=== PATIENT | female | born 2000 | race Native Hawaiian/Other Pacific Islander ===

== ENCOUNTER 2022-04-29 22:54 | Outpatient (CLI) | payer BC, SELFPAY ==
--- OUTSIDE RECORDS SUMMARY | 2022-05-08 12:32 | XMS_ITS | Clinical Summary ---
:2000 Author Organization [facility] [place] [address] Care Team Providers Name Role Phone Pcp, [...] Assigned at Date Recorded Not on file Obstetrics History Last Filed Vital Signs Vital [...] and wt on same day) 09/15/2022 09/15/2021, 08/05/19, for age 18+ 02/11/2021, Additional history exists [...] 04/04/[address] [facility] 3:14 PM CDT [facility] Specimen Anatomical Collection Method Collection Time Receive d Time (Source) Location / / Volume Laterality Throat SPECIMEN FROM Non-Blood / 04/04/2022 2:59 PM 04/04/20 2:59 THROAT / Unknown Unknown CDT PM CDT Mila Evangelista NP MICROBIOLOGY Performing Organization Address City/State/ZIP Code Phon e Number [facility] [address] [place] [address] from Last 3 Months Insurance Payer Benefit Plan / Subscriber ID Effective Dates Phone Addre ss Type Group [employer] [id number] 2019-Present [address] [address] [place] [address] [address]) [place] [address] Mike James Motor Vehicle Self [address] ([place]) [place] [address] Care Teams 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
== END 2022-04-29 22:55 | disposition home or self-care (01) ==
LOC: AMB 05-08 12:17
PROVIDERS: PCP Family Medicine; Visit Provider Family Medicine
DX: R06.09 Other forms of dyspnea (principal); R11.10 Vomiting, unspecified
CPT/HCPCS: A0425; A0427

== ENCOUNTER 2022-04-29 23:17 | Emergency (ER) | payer BC, SELFPAY ==
[2022-04-29 23:29] VITALS: BP 145/90; PULSE 130; RESP 24; TEMP 38.3; O2SAT 96; BMI 31.4
[2022-04-30 00:03] LABS: PCR FLU A POSITIVE PCR FLU A (Negative); PCR FLU B Negative PCR FLU B (Negative); PCR RSV Negative PCR RSV (Negative)
[2022-04-30 00:06] LABS: SARS PCR* Negative SARS-CoV-2 (Negative)
--- OUTSIDE RECORDS SUMMARY | 2022-04-30 00:25 | XMS_ITS | Clinical Summary ---
:2000 Author Organization [facility] [place] [address] Care Team Providers Name Role Phone Pcp, No Primary Care Provider Unavailable Allergies No known active allergies Medications Medication Sig Dispensed Refills Start Date End Date Status benzonatate Take 1-2 30 Capsule 0 03/20/2021 Active (TESSALON) 100 mg Capsules capsuleIndications: (100-200 mg) by Cough mouth 3 times daily if needed for Cough. albuterol HFA Inhale 2 Puffs 1 Each 0 03/20/2021 Active (PRO-AIR; VENTOLIN; by mouth every PROVENTIL) 90 4 hours if mcg/actuation needed (cough inhalerIndications: or wheezing). Wheezing ondansetron (ZOFRAN) Take 1 Tablet 30 Tablet 0 04/30/2021 Active 4 mg (4 mg) by mouth tabletIndications: every 8 hours Nausea and vomiting, if needed for intractability of Nausea/Vomiting vomiting not . specified, unspecified vomiting type loratadine (CLARITIN) Take 1 Tablet 0 08/04/2021 Active 10 mg tablet (10 mg) by mouth once daily. budesonide-formoteroL Inhale 2 Puffs 10.2 g 11 09/15/2021 Active (Symbicort) 80-4.5 by mouth 2 mcg/actuation (80-4.5 times daily. mcg each actuation) inhalerIndications: Wheeze mometasone-formoterol Inhale 2 Puffs 13 g 5 09/17/2021 Active (Dulera) 100-5 by mouth 2 mcg/actuation times daily. inhalerIndications: Moderate persistent intrinsic asthma without status asthmaticus without complication benzonatate Take 1 Capsule 21 Capsule 0 04/04/2022 A ctive (TESSALON) 200 mg (200 mg) by capsuleIndications: mouth 3 times Cough, unspecified daily if needed type for Cough. cefdinir (OMNICEF) Take 6 mL (300 84 mL 0 04/04/202204/11 250 mg/5 mL mg) by mouth suspensionIndications two times daily : Upper respiratory for 7 days. tract infection, unspecified type, Cough, unspecified type Active Problems Problem Noted Date Vitamin D deficiency 09/18/2017 Teeth-grinding 10/15/2009 Resolved Problems Problem Noted Date Resolved Date Severe episode of recurrent major depressive disorder, 10/1312/02/2020 without psychotic features Encounters Date Type Specialty Care Team Description 04/04/2022 Office Visit Mila Evangelista NP Cough; T hroat Problem; Fever; Vomiting; Influ yohana Like Illness 04/04/2022 Travel from Last 3 Months Immunizations Name Administration Dates Next Due COVID-19 vaccine (Moderna 08/18/2020, 07/21/2020 100mcg/0.5mL) PF, MDV DTaP 09/10/2005, 11/03/2001, 04/04/2001, 01/07/2001, 2000 HIB-HepB (Comvax) 11/03/2001, 01/07/2001, 2000 HPV 9 (Gardasil 9) 12/22/2017, 10/18/2017, 04/01/2016 Hepatitis A (Peds) 12/22/2017, 09/12/2010, 10/15/2009 Hepatitis B (Peds) 11/03/2001, 01/07/2001, 2000 Hib Conjugate, Unspecified 11/03/2001, 01/07/2001, 1 Human Papilloma Virus Vaccine 11/21/2014 Human Papilloma Virus Vaccine, 01/12/2013 Unspecified Inactivated Polio Vaccine 09/10/2005, 04/04/2001, 01/07/2001 , 2000 Influenza A (H1N1), Inactivated 05/17/2009, 04/19/2009 Influenza A (H1N1), Inactivated (Age 1205/17/2009, 04/19/2009 >=3 Years) Influenza, IIV4 02/28/2020, 04/17/2019, 04/01/2016 MMR 09/10/2005, 09/02/2001 Meningococcal Vaccine (Menactra) 01/22/2012 Pneumococcal Poly,23-Valent 01/07/2001 (Pneumovax) Pneumococcal conj 7-Valent (Prevnar 7) 02/10/2002, 1, 01/07/2001, 2000 Tdap 10/18/2017, 01/22/2012 Varicella Vaccine 10/15/2009, 09/02/2001 Family History Medical History Relation Name Comments Diabetes Father No Known Problems Mother Diabetes Paternal Grandfather Diabetes Paternal Grandmother Relation Name Status Comments Father Mother Paternal Grandfather Paternal Grandmother Social History Tobacco Use Types Packs/Day Years Used Date Never Smoker Smokeless Tobacco: Never Used Tobacco Cessation: Counseling Given: Yes Alcohol Use Standard Drinks/Week Comments Never 0 (1 standard drink = 0.6 oz pure alcoho l) Alcohol Habits Answer Date Recorded How often do you have a drink containing alcohol? Never 12/02/2020 How many drinks containing alcohol do you have on a typical Not asked day when you are drinking? How often do you have six or more drinks on one occasion? No t asked Comment: Not asked Sex Assigned at Date Recorded Not on file COVID-19 Exposure Response Date Recorded In the last 10 days, have you been in contact with No / Unsu re 04/04/2022 1:27 PM CDT someone who was confirmed or suspected to have Coronavirus/COVID-19? Obstetrics History Last Filed Vital Signs Vital Sign Reading Time Taken Comments Blood Pressure 118/81 09/15/2021 9:25 AM CDT Pulse 84 04/04/2022 1:37 PM CDT Temperature 37 ??C (98.6 ??F) 04/04/2022 1:37 PM CDT Respiratory Rate 18 04/04/2022 1:37 PM CDT Oxygen Saturation 97% 04/04/2022 1:37 PM CDT Inhaled Oxygen Concentration - - Weight 65.8 kg (145 lb) 04/04/2022 1:37 PM CDT Height 144 cm (4' 8.69) 09/15/2021 9:25 AM CDT Body Mass Index 31.72 09/15/2021 9:25 AM CDT Plan of Treatment Health Maintenance Due Date Last Done Comments Pneumococcal series for age 0308/26/2006 01/07/2001 19-64 (1 - PCV) Hepatitis C screening for 2018 age 18-79 COVID-19 vaccine series (4 - 07/15/2021 05/20/2021, 021, Booster for Moderna series) 07/21/2020 Pap test for age 21-65 2021 Depression screening for age 0712/03/2021 12/03/2020, 021, 12+ 05/02/2019, Additional history exists Influenza for age 9-49 01/29/2022 02/28/2020, 04/17/2019, 04/01/2016, Additional history exists BMI (ht and wt on same day) 09/15/2022 09/15/2021, 08/05/19 22, for age 18+ 02/11/2021, Additional history exists Tetanus booster 10/19/2027 10/18/2017, 01/22/2012 Meningococcal series for age Aged Out 01/22/2012 No longer eligible 04-20 based on patient 's age to complete this topic Tdap Completed 10/18/2017, 01/22/2012 HPV series for age 9-26 Completed 12/22/2017, 12/22/2017, 10/18/2017, Additional history exists HIV for age 15-65 Completed 12/02/2020 Procedures Procedure Name Priority Date/Time Associated Diagnosis Comme nts THROAT RAPID STREP STAT 04/04/2022 2:59 PM Sore throat Res ults for this ONLY CLINIC CDT procedure are i n the results section. from Last 3 Months Results THROAT RAPID STREP ONLY CLINIC (04/04/2022 2:59 PM CDT) Analysis Performed At Patho logist Time Signature THROAT RAPID Negative 04/04/2022 [facility] 3:14 PM [facility]T [facility] Specimen Anatomical Collection Method Collection Time Receive d Time (Source) Location / / Volume Laterality Throat SPECIMEN FROM Non-Blood / 04/04/2022 2:59 PM 04/04/20 22 2:59 THROAT / Unknown Unknown CDT PM CDT Mila Evangelista NP MICROBIOLOGY Performing Organization Address City/State/ZIP Code Phon e Number [facility] [address] [place], [place] [id number] from Last 3 Months Insurance Payer Benefit Plan / Subscriber ID Effective Dates Phone Addre ss Type Group [employer] [place] [employer] [id number] 2019-Present [address] [address] [place] [address] [address]Home) [place] [address] Mike James Motor Vehicle Self [address]) [place] [address] Care Teams 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
--- NOTE | 2022-04-30 00:29 | ED.GENADULT ---
HPI - General Adult General Chief complaint: Fever Stated complaint: fever, short of breath Time Seen by Provider: 04/29/22 23:53 Source: patient, family and EMS Mode of arrival: EMS Limitations: no limitations History of Present Illness HPI narrative: 21-year-old female with known history of asthma presents to the emergency department with body aches, fever, shortness of breath. She reports that her symptoms started a day and a half ago, initially with body aches, fever and then quickly starting to develop chest tightness and shortness of breath. Reports that she has been evaluated by an fleet operations manager, after thinking that her breathing symptoms may have been set off by the pet cats that she adopted over a year ago. It sounds as though she was not found to be necessarily allergic to the cat per her description but was diagnosed with asthma and has been prescribed Symbicort. It does not sound as though she understands the difference between the Symbicort and a rescue inhaler. She states that she has been using the Symbicort as prescribed on specific questioning, she is using it less than half of the days, as she has been running low. She does not have access to an albuterol inhaler. Tonight, she felt chest tightness and difficulty breathing. She did vomit x1. Her last dose of ibuprofen was around 6:30 p.m., 5 hours prior to arrival. This did help with her fever somewhat. Her appetite has been decreased for the past 2 days. No known illness exposures. She did not get an influenza vaccine this year. Never had to be hospitalized or intubated for her asthma. Does not sound as though she has ever been prescribed oral steroids. EMS arrived, noted sats of 89%, was given albuterol and she reports that her symptoms markedly improved very quickly. Normal oxygenation here in the emergency department noted. S medical history notable only for asthma. No prior surgeries. Only long-term medication is Symbicort. Denies allergies. Socially, nonsmoker with no recent pertinent travel. Family history non pertinent. ROS is notable for the generalized, respiratory, GI symptoms as above. Otherwise denies times 12 systems. Related Data Home Medications Medication Instructions Recorded Confirmed budesonide-formoterol HFA 80 inhalation 04/29/22 mcg-4.5 mcg/actuation aerosol inhaler (Symbicort) Previous Rx's Medication Instructions Recorded albuterol sulfate 90 mcg/actuation 2 puff inhalation Q4-6H PRN 04/30/22 aerosol inhaler shortness of breath or wheezing #8.5 grams inhalational spacing device #1 ea 04/30/22 (Aerochamber Plus Flow-Vu) oseltamivir 75 mg capsule (Tamiflu) 75 mg PO BID 5 days #10 caps 04/30/22 prednisone 20 mg tablet 20 mg PO BID #10 tabs 04/30/22 Allergies Allergy/AdvReac Type Severity Reaction Status Date / Time No Known Drug Allergies Allergy Verified 04/29/22 23:29 [facility] Medical History Asthma Exam Const: Vital Signs, click to edit/add: Vital Signs - 24 hr 04/29/22 23:29 Temperature 100.9 F H Pulse Rate [Pulse Oximeter] 130 H Respiratory Rate 24 Blood Pressure [Le ft Upper Arm] 145/90 H Pulse Oximetry 96 Oxygen Delivery Me thod Room Air Documenting provider has reviewed patient's vital signs: yes Common normals: no apparent distress and alert General appearance: cooperative, comfortable and well kempt Orientation/consciousness: Yes awake HENMT: Common normals: normocephalic and TM's normal bilaterally Head and scalp: normocephalic Tympanic membrane: TM's normal bilaterally Mouth: oral and palatal mucosa normal Throat: posterior oropharynx normal Eye: Common normals: no scleral icterus Other: Conjunctiva are injected but with no exudate. Normal visual tracking noted Neck & C-Spine: Common normals: full ROM and no lymphadenopathy Resp: Common normals: normal respiratory effort and no use of accessory muscles Other: Mild expiratory wheeze only with no prolongation of expiration at the time of my exam. Note that this was after albuterol nebulizer given. Cardio: Common normals: regular rate, regular rhythm, S1 normal heart sound, S2 normal heart sound, no murmurs and peripheral pulses 2+ throughout Rate: regular rate Rhythm: regular rhythm Heart sounds: S1 normal and S2 normal Peripheral pulses: pulses 2+ throughout Extremity: Common normals: normal to inspection, normal capillary refill and no pedal edema Neuro: Sensorium/orientation: awake and alert Speech: speech normal Motor exam: no tremor noted and no movement abnormalities noted Psych: Common normals: thought process normal, cooperative, affect normal, speech normal and activity/motor behavior normal Appearance: well kempt Speech: normal speech Thought process: normal thought process Skin: Common normals: no rashes or lesions noted General skin exam: no rashes or lesions noted Course Vital Signs Vital signs: Initial Vital Signs Temperature 100.9 F H 04/29/22 23:29 Temperature Source Temporal Artery Scan 04/29/22 23:29 Pulse Rate 130 H 04/29/22 23:29 Respiratory Rate 24 04/29/22 23:29 Blood Pressure 145/90 H 04/29/22 23:29 Blood Pressure Mean 108 04/29/22 23:29 Pulse Oximetry 96 04/29/22 23:29 Oxygen Delivery Method 04/29/22 23:29 Vital Signs Temperature 100.9 F H 04/29/22 23:29 Pulse Rate 130 H 04/29/22 23:29 Respiratory Rate 24 04/29/22 23:29 Blood Pressure 145/90 H 04/29/22 23:29 Pulse Oximetry 96 04/29/22 23:29 Oxygen Delivery Method 04/29/22 23:29 Temperature 100.9 F H 04/29/22 23:29 Pulse Rate 130 H 04/29/22 23:29 Respiratory Rate 24 04/29/22 23:29 Blood Pressure 145/90 H 04/29/22 23:29 Pulse Oximetry 96 04/29/22 23:29 Oxygen Delivery Method 04/29/22 23:29 Medical Decision Making MDM Narrative Medical decision making narrative: Laboratory studies noting positive influenza. This does fit clinically with her symptoms. Marked improvement with albuterol. Discussed management of her asthma and influenza. No signs of sepsis. Bacterial pneumonia and superinfection on likely due to short duration of illness and benign pulmonary exam. Do not recommend chest x-ray as her oxygenation improved so markedly with 1 nebulizer treatment. Recommend beginning Tamiflu, stressed the importance of annual flu shot. Extensive discussion regarding the difference between albuterol rescue inhalers and Symbicort. Patient will receive 40 mg of prednisone p.o. x1 now and then will be prescribed 20 mg b.i.d. for the next 5 days. Initial dose of Tamiflu 75 mg p.o. x1 given now and will continue on 75 b.i.d. for the next 5 days. Albuterol from [facility] and also long-term prescription with spacer given. Alarm symptoms reviewed as indications to come back to the emergency department. May return to work or school in 48 hours if symptoms are markedly improved and on Tamiflu. Lab Data Lab results reviewed: Yes I reviewed the patient's lab results Labs: Lab Results 04/29/22 Range/Units 23:20 SARS-CoV-2 (PCR) Negative SARS-CoV-2 (Negative) Influenza Type A (PCR) POSITIVE PCR FLU A A (Negative) Influenza Type B (PCR) Negative PCR FLU B (Negative) RSV (PCR) Negative PCR RSV (Negative) Discharge Plan Discharge Clinical Impression: Asthma exacerbation, Influenza A Patient Disposition: Home w/ Parent or Adult Condition: Improved Instructions: Asthma (DC), Influenza (DC), How to Use a Metered-Dose Inhaler and a Spacer (ED) Additional Instructions: And her symptoms are both consistent with influenza A. We are seeing a lot of this illness right now. Most commonly, people get nausea, headache, body aches, fever. In your case, your symptoms are more worrisome because of your history of asthma. In the ambulance, you were given albuterol, a nebulizer solution that helps with asthma and breathing. Worked well for you, as expected. As we discussed, the Symbicort that your prescribed is an excellent medicine but is only meant to help prevent your symptoms of asthma on an every day basis. It is important that you continue using this medication as prescribed. Please call for refill as you are running low. You will also need to have short-acting albuterol on hand in case of flares. It will be especially important to use this for the next few days. You will strip picker 1 container out of our short-term medication vending machine in the lobby. This only has a few sprays in it, but it will get you through the night until the pharmacies open. I will send additional prescriptions for more of the albuterol, the short-acting inhaler. I will also send prescriptions for prednisone, the steroid to help with the inflammation in your lungs, and Tamiflu, the antiviral medicine. As we discussed, the prednisone will be widely available but the Tamiflu may be more difficult to find. Please ask the pharmacist for assistance in helping you locate some if they are out. Medicines I have given you will not likely help with the nausea and body aches for a few days. Please remember to get your flu shot every year because of your history of asthma. Your next dose of both the prednisone and the Tamiflu will be early this afternoon. Your 3rd dose will be Wednesday morning, upon awakening. Activity Level: Activity as Tolerated Activity Detail: You may return to work or school on Wednesday if feeling better. Discharge Diet: Regular Prescriptions: New prednisone 20 mg tablet 20 mg PO BID Qty: 10 0RF albuterol sulfate 90 mcg/actuation HFA aerosol inhaler 2 puff inhalation Q4-6H PRN (Reason: shortness of breath or wheezing) Qty: 8.5 2RF (DME) Aerochamber Plus Flow-Vu Spacer See Rx Instructions .Route Qty: 1 0RF Rx Instructions: As directed oseltamivir [Tamiflu] 75 mg capsule 75 mg PO BID 5 Days Qty: 10 0RF No Action budesonide-formoterol [Symbicort] 80-4.5 mcg/actuation HFA aerosol inhaler INHALATION Label Comments: INHALE 2 PUFFS BY MOUTH TWICE DAILY Follow Up/Referrals: Rod Matthews MD [Primary Care Provider] - Stand Alone Forms: [facility] [employer] Info Instructions
[2022-04-30] MEDS: ACETAMINOPHEN 325 MG TABLET 650 MG PO (00:30)
[2022-04-30] MEDS: OSELTAMIVIR PHOSPHATE 75 MG CAPSULE PO (00:30)
[2022-04-30] MEDS: predniSONE 10 MG TABLET 40 MG PO (00:30)
[2022-04-30 00:57] VITALS: BP 145/90; PULSE 101; RESP 20
== END 2022-04-30 00:59 | disposition home or self-care (01) ==
PROVIDERS: Emergency Provider Family Medicine; PCP Family Medicine
DX: J45.901 Unspecified asthma with (acute) exacerbation (principal); J09.X2 Influenza due to identified novel influenza A virus with other respiratory manifestations
CPT/HCPCS: 87502; 87634; 87635; 99283; 99284; A9270; J7512

== ENCOUNTER 2022-06-13 14:21 | Emergency (ER) | payer BC, SELFPAY ==
[2022-06-13 14:27] VITALS: BP 124/78; PULSE 112; RESP 18; TEMP 36.8; O2SAT 93; BMI 30.3
--- NOTE | 2022-06-13 14:58 | ED_ITS ---
HPI - General Adult General Chief complaint: Unspecified Complaint, Adult Stated complaint: Possible Alcohol Poisoning Time Seen by Provider: 06/13/22 14:22 History of Present Illness HPI narrative: This 21-year-old female comes in reporting nausea, vomiting, and generalized malaise. She states that she thinks it is related to alcohol. She reports that she does not normally drink alcohol regularly but did start taking alcohol at about 8:00 p.m. last night. This continued through noon till about 5:00 a.m. this morning. She now feels these symptoms of hang over or withdrawal. She denies using any street drugs and does not think that there was any other medications placed in the alcohol she was drinking. She is otherwise in good health. Related Data Home Medications Medication Instructions Recorded Confirmed budesonide-formoterol HFA 80 inhalation 04/29/22 mcg-4.5 mcg/actuation aerosol inhaler (Symbicort) Previous Rx's Medication Instructions Recorded albuterol sulfate 90 mcg/actuation 2 puff inhalation Q4-6H PRN 04/30/22 aerosol inhaler shortness of breath or wheezing #8.5 grams inhalational spacing device #1 ea 04/30/22 (Aerochamber Plus Flow-Vu) oseltamivir 75 mg capsule (Tamiflu) 75 mg PO BID 5 days #10 caps 04/30/22 prednisone 20 mg tablet 20 mg PO BID #10 tabs 04/30/22 ondansetron 4 mg disintegrating 4 mg PO Q6H #10 tabs 06/13/22 tablet Allergies Allergy/AdvReac Type Severity Reaction Status Date / Time No Known Drug Allergies Allergy Verified 06/13/22 14:31 Review of Systems Status of ROS: Reports: 10 or more systems reviewed and unremarkable except as noted in History and below Narrative: Constitutional: No fevers, no weight gain or loss. Eyes: No discharge. No vision changes. HENT: No congestion, no sore throat, no ear pain. Cardiovascular: No chest pain, no palpitations. Respiratory: No shortness of breath, no wheezes, no cough. Gastrointestinal: No abdominal pain, no diarrhea. Nausea and vomiting. Genitourinary: No dysuria, no hematuria. Musculoskeletal: Normal range of motion. Skin: No rashes, no pruritis. Neurological: No dizziness, weakness, sensory change, speech change. Endo/Heme/Allergies: No bruising or bleeding. No polydipsia. Pysch: no suicidality, no anxiety, no insomnia. All other systems reviewed and are negative. [facility] Medical History Asthma Social History Smoking Status: Never smoker How often do you have a drink containing alcohol: monthly or less AUDIT-C Alcohol total score: 1 Non-prescribed substance use: denies use Exam Narrative: Exam Narrative: Constitutional: Well-developed, well-nourished, no acute distress. HEENT: Normocephalic, atraumatic. Neck: Normal range of motion. Nontender. Supple. Heart: Regular. No murmurs. Tachycardia, rate 112 beats per minute. Intact distal pulses. Lungs: Clear to auscultation. No chest discomfort. No wheezes, rhonchi, or rales. Abdomen: Normal bowel sounds. Nontender. No rebound tenderness. Genitalia: Deferred. Back: No midline tenderness. Normal range of motion. Extremities: Normal range of motion. No injury. Skin: Intact. No rash. Warm. No erythema or pallor. Neurologic: No altered sensation. No weakness. Alert and oriented. She does have a very slight tremor in her hands. Psychiatric: No suicidality. No anxiety or depression. No insomnia. Nursing notes and vitals signs are reviewed. Const: Vital Signs, click to edit/add: Vital Signs - 24 hr 06/13/22 14:27 Temperature 98.2 F Pulse Rate [Left P ulse Oximeter] 112 H Respiratory Rate 18 Blood Pressure [Ri ght Upper Arm] 124/78 Pulse Oximetry 93 Oxygen Delivery Me thod Room Air Course Vital Signs Vital signs: Initial Vital Signs Temperature 98.2 F 06/13/22 14:27 Temperature Source Temporal Artery Scan 06/13/22 14:27 Pulse Rate 112 H 06/13/22 14:27 Respiratory Rate 18 06/13/22 14:27 Blood Pressure 124/78 06/13/22 14:27 Blood Pressure Mean 93 06/13/22 14:27 Blood Pressure Position Sitting 06/13/22 14:27 Pulse Oximetry 93 06/13/22 14:27 Oxygen Delivery Method 06/13/22 14:27 Vital Signs Temperature 98.2 F 06/13/22 14:27 Pulse Rate 112 H 06/13/22 14:27 Respiratory Rate 18 06/13/22 14:27 Blood Pressure 124/78 06/13/22 14:27 Pulse Oximetry 93 06/13/22 14:27 Oxygen Delivery Method 06/13/22 14:27 Temperature 98.2 F 06/13/22 14:27 Pulse Rate 112 H 06/13/22 14:27 Respiratory Rate 18 06/13/22 14:27 Blood Pressure 124/78 06/13/22 14:27 Pulse Oximetry 93 06/13/22 14:27 Oxygen Delivery Method 06/13/22 14:27 Medical Decision Making MDM Narrative Medical decision making narrative: This patient has symptoms related to excessive alcohol use recently. She does not normally take alcohol except occasional basis. She has not had symptoms like this in the past. I did offer diagnostic and treatment options including IV fluids and labs along with medications to treat her symptoms. The patient did drive herself here and agreed to receive an oral dose of Zofran. I stated that Ativan would help her feel better with regard to some of the tremors she is experiencing but she would need to have a ride home if receiving this medicine. She made a phone call and stated that she would just take the nausea medicine because she needs to drive home and did not have an option for a ride. Discharge Plan Discharge Clinical Impression: Alcohol abuse Patient Disposition: Home, Self-Care Condition: Unchanged Additional Instructions: Avoid alcohol. Take medication as needed and directed for nausea. Follow up with MD or return if worsening. Prescriptions: New ondansetron 4 mg tablet,disintegrating 4 mg PO Q6H Qty: 10 0RF No Action budesonide-formoterol [Symbicort] 80-4.5 mcg/actuation HFA aerosol inhaler INHALATION Label Comments: INHALE 2 PUFFS BY MOUTH TWICE DAILY prednisone 20 mg tablet 20 mg PO BID Qty: 10 0RF albuterol sulfate 90 mcg/actuation HFA aerosol inhaler 2 puff inhalation Q4-6H PRN (Reason: shortness of breath or wheezing) Qty: 8.5 2RF (DME) Aerochamber Plus Flow-Vu Spacer See Rx Instructions .Route Qty: 1 0RF Rx Instructions: As directed oseltamivir [Tamiflu] 75 mg capsule 75 mg PO BID 5 Days Qty: 10 0RF Follow Up/Referrals: Rod Matthews MD [Primary Care Provider] - Stand Alone Forms: [employer] Info Instructions
[2022-06-13] MEDS: ONDANSETRON ODT 4 MG TAB PO (15:15)
== END 2022-06-13 15:26 | disposition home or self-care (01) ==
LOC: ED 15:17
PROVIDERS: Emergency Provider Emergency Medicine Emergency Medical Services; PCP Family Medicine
DX: F10.10 Alcohol abuse, uncomplicated (principal)
CPT/HCPCS: 99283; 99284; A9270

== ENCOUNTER 2022-08-05 06:21 | Emergency (ER) | payer BC, SELFPAY ==
[2022-08-05 06:27] VITALS: BP 135/82; PULSE 103; RESP 20; TEMP 36.6; O2SAT 94
--- NOTE | 2022-08-05 06:42 | CRLHL7_ITS ---
For Patients: As a result of the Century Cures Act, medical imaging exams and procedure reports are released immediately into your electronic medical record. You may view this report before your referring provider. If you have questions, please contact your health care provider. Indication: Asthma flare Technique: Chest 2 views Comparison: Chest x-ray 03/10/2012 Findings/Impression: Cardiovascular and mediastinum: Heart size and vasculature are normal in caliber and appearance. Mediastinum is within normal limits. Lungs and pleural spaces: No pleural effusion pneumothorax. No focal pulmonary consolidation. Bilateral bronchial wall thickening which can be seen in bronchitis or reactive airways disease. Bones and soft tissues: No significant findings. Dictated by Wade Ochoa MD @ 08/05/2022 7:20:46 AM (Electronically Signed)
[2022-08-05] MEDS: predniSONE 10 MG TABLET 50 MG PO (06:50)
--- NOTE | 2022-08-05 06:50 | ED.GENADULT ---
HPI - General Adult General Chief complaint: Asthma Stated complaint: chest tightness,shortness of breath Time Seen by Provider: 08/05/22 06:24 Source: patient and family Mode of arrival: ambulatory History of Present Illness HPI narrative: 21-year-old female with notable history of asthma presents to the emergency department without asthma flare. Patient reports she started having runny nose and cough 2 days ago. Shortness of breath worsened yesterday, began using albuterol inhaler. Had been having good compliance with her Symbicort in the interim. She says that she used her albuterol did not seem to help as much as it typically does, therefore she used her nebulizer. She says that it did not seem to help as much and she was still noticing shortness of breath and chest tightness. It did help for a while but her shortness of breath came again within a couple of hours, causing concern. There has been no fever. She did have an episode of post-tussive emesis x1 today. No known sick contacts, no pertinent travel, no use of recent antibiotics. No prior intubations or hospitalizations for asthma. Reports that her last ED visit was in April. Past medical history notable for asthma, denies any other long-term health problems. Denies any prior surgeries. Home meds include Symbicort twice daily as a preventative her and albuterol as needed. Socially she is nonsmoker with no pertinent travel. No ill household contacts recently. ROS is notable for the GI, HEENT, respiratory symptoms as described above, otherwise denies times 12 systems. Related Data Home Medications Medication Instructions Recorded Confirmed budesonide-formoterol HFA 80 inhalation 04/29/22 mcg-4.5 mcg/actuation aerosol inhaler (Symbicort) Previous Rx's Medication Instructions Recorded albuterol sulfate 90 mcg/actuation 2 puff inhalation Q4-6H PRN 04/30/22 aerosol inhaler shortness of breath or wheezing #8.5 grams inhalational spacing device #1 ea 04/30/22 (Aerochamber Plus Flow-Vu) ipratropium 0.5 mg-albuterol 3 mg 3 ml inhalation Q6-8H PRN 08/05/22 (2.5 mg base)/3 mL nebulization shortness of breath or wheezing soln #180 mL montelukast 10 mg tablet 10 mg PO QHS #90 tabs 08/05/22 prednisone 20 mg tablet 20 mg PO BID #10 tabs 08/05/22 Allergies Allergy/AdvReac Type Severity Reaction Status Date / Time No Known Drug Allergies Allergy Verified 06/13/22 14:31 [facility] Medical History Asthma Social History Smoking Status: Never smoker Do you use any of these nicotine containing products: None Second hand tobacco smoke exposure: No How often do you have a drink containing alcohol: monthly or less AUDIT-C Alcohol total score: 1 Non-prescribed substance use: denies use Exam Const: Vital Signs, click to edit/add: Vital Signs - 24 hr 08/05/22 06:27 Temperature 98 F Pulse Rate [Pulse Oximeter] 103 H Respiratory Rate 20 Blood Pressure [Ri ght Upper Arm] 135/82 Pulse Oximetry 94 Oxygen Delivery Me thod Room Air Documenting provider has reviewed patient's vital signs: yes Common normals: no apparent distress General appearance: cooperative, comfortable and well kempt HENMT: Common normals: normocephalic and head/scalp atraumatic Head and scalp: normocephalic and atraumatic Face and sinus: normal facial exam Mouth: oral and palatal mucosa normal Throat: posterior oropharynx normal Eye: Common normals: conjunctivae normal General eye: normal appearance of both eyes Conjunctiva: conjunctiva(e) normal Neck & C-Spine: Common normals: full ROM and no lymphadenopathy Resp: Common normals: normal respiratory effort and no use of accessory muscles Other: Moderate prolongation of expiration with moderate expiratory wheeze. No crackles. Cardio: Common normals: regular rate, regular rhythm, S1 normal heart sound, S2 normal heart sound, no murmurs and peripheral pulses 2+ throughout Rate: regular rate Rhythm: regular rhythm Heart sounds: S1 normal and S2 normal Peripheral pulses: pulses 2+ throughout Extremity: Common normals: normal to inspection, normal capillary refill and no clubbing, cyanosis or edema Neuro: Speech: speech normal Gait (neuro): normal gait Motor exam: no movement abnormalities noted Psych: Common normals: speech normal Appearance: well kempt Attitude: calm and engaged Speech: normal speech Insight: insight good Judgement: judgment good Skin: Common normals: no rashes or lesions noted General skin exam: no rashes or lesions noted Course Vital Signs Vital signs: Initial Vital Signs Temperature 98 F 08/05/22 06:27 Temperature Source Temporal Artery Scan 08/05/22 06:27 Pulse Rate 103 H 08/05/22 06:27 Pulse Rhythm 08/05/22 06:27 Respiratory Rate 20 08/05/22 06:27 Blood Pressure 135/82 08/05/22 06:27 Blood Pressure Mean 99 08/05/22 06:27 Blood Pressure Position Sitting 08/05/22 06:27 Pulse Oximetry 94 08/05/22 06:27 Oxygen Delivery Method 08/05/22 06:27 Vital Signs Temperature 98 F 08/05/22 06:27 Pulse Rate 103 H 08/05/22 06:27 Respiratory Rate 20 08/05/22 06:27 Blood Pressure 135/82 08/05/22 06:27 Pulse Oximetry 94 08/05/22 06:27 Oxygen Delivery Method 08/05/22 06:27 Temperature 98 F 08/05/22 06:27 Pulse Rate 103 H 08/05/22 06:27 Respiratory Rate 20 08/05/22 06:27 Blood Pressure 135/82 08/05/22 06:27 Pulse Oximetry 94 08/05/22 06:27 Oxygen Delivery Method 08/05/22 06:27 Medical Decision Making MDM Narrative Medical decision making narrative: Differential diagnosis including pneumonia, pertussis, RSV, influenza, asthma exacerbation, cardiac causes. Vital signs are stable, no hypoxia. Recommended swabs for viral infections, DuoNeb, steroid, chest x-ray and re-evaluation. It seems as though she is having steroid dependent flares every few months, she would likely benefit from singular as well. Update: Re-examination does show moderate improvement after the DuoNeb and steroid. Chest x-ray reviewed with patient, reassuring. Discussed long-term management. Do recommend that she add Singulair to her regimen, continue Symbicort. Let us do 5 days of prednisone and since she did get such improvement on the DuoNeb I have given her prescription for these and discuss the difference between this and albuterol. Lab Data Lab results reviewed: Yes I reviewed the patient's lab results Labs: Lab Results 08/05/22 Range/Units 06:40 SARS-CoV-2 (PCR) Negative SARS-CoV-2 (Negative) Influenza Type A (PCR) Negative PCR FLU A (Negative) Influenza Type B (PCR) Negative PCR FLU B (Negative) RSV (PCR) Negative PCR RSV (Negative) Imaging Data Chest x-ray: My impression: Normal chest x-ray Radiologist's impression: Comparison: Chest x-ray 03/10/2012 Findings/Impression: Cardiovascular and mediastinum: Heart size and vasculature are normal in caliber and appearance. Mediastinum is within normal limits. Lungs and pleural spaces: No pleural effusion pneumothorax. No focal pulmonary consolidation. Bilateral bronchial wall thickening which can be seen in bronchitis or reactive airways disease. Bones and soft tissues: No significant findings. Discharge Plan Discharge Clinical Impression: Asthma with acute exacerbation Patient Disposition: Home w/ Parent or Adult Condition: Improved Instructions: Asthma (DC) Additional Instructions: As we discussed, your swabs for COVID, RSV and influenza are negative. This is what I expected. Your chest x-ray does not show any pneumonia but does confirm my suspicion that this is an asthma exacerbation. Your given a dose of prednisone, this will take a few hours to fully kick in. As we discussed you tend to be hungry and a little williamson on the medication but helps tremendously with the asthma. He will take this twice daily for the next 5 days. Your next dose will be this evening. Take it morning and evening for a total of 5 days. You may continue using albuterol. I have sent a prescription for DuoNeb also. This has albuterol plus the mucus busting medication that I gave you in the emergency room. Most find this helpful to use 3 times daily. You only need to use this for the next few days while you are sick. I would not use it more than 4 times daily, if you do still need albuterol in the meantime, use just plain albuterol. You may use the albuterol up to every hour if needed. As we also discussed, it does not sound as though your symptoms are well controlled on the Symbicort alone. For now, I would also like you to start a medication called Singulair 1 pill nightly for the next 3 months. You will still keep using her Symbicort as well. Please follow-up with your primary care provider in 1 week to decide if it is safe to wean off of the steroids and also if staying on the Singulair also known as montelukast is in your best interest. For most, once we get the inflammation under control after a few months, you can go off of that medication again. Together, you will decide which is best for you. If you have any severe shortness of breath, please come back to the emergency department. Activity Level: No Restrictions and Activity as Tolerated Discharge Diet: Regular Prescriptions: New montelukast 10 mg tablet 10 mg PO QHS Qty: 90 0RF prednisone 20 mg tablet 20 mg PO BID Qty: 10 0RF ipratropium-albuterol 0.5 mg-3 mg(2.5 mg base)/3 mL solution for nebulization 3 ml inhalation Q6-8H PRN (Reason: shortness of breath or wheezing) Qty: 180 1RF Continued budesonide-formoterol [Symbicort] 80-4.5 mcg/actuation HFA aerosol inhaler INHALATION Label Comments: INHALE 2 PUFFS BY MOUTH TWICE DAILY albuterol sulfate 90 mcg/actuation HFA aerosol inhaler 2 puff inhalation Q4-6H PRN (Reason: shortness of breath or wheezing) Qty: 8.5 2RF (DME) Aerochamber Plus Flow-Vu Spacer See Rx Instructions .Route Qty: 1 0RF Rx Instructions: As directed Follow Up/Referrals: Rod Matthews MD [Primary Care Provider] - Stand Alone Forms: [employer] Info Instructions
[2022-08-05] MEDS: IPRAT-ALBUT 0.5-2.5 MG/3 ML NEB 1 NEB IH (06:51)
[2022-08-05 07:27] LABS: PCR FLU A Negative PCR FLU A (Negative); PCR FLU B Negative PCR FLU B (Negative); PCR RSV Negative PCR RSV (Negative)
[2022-08-05 07:29] LABS: SARS PCR* Negative SARS-CoV-2 (Negative)
[2022-08-05 07:55] VITALS: BP 134/72; PULSE 108; RESP 24; O2SAT 96
== END 2022-08-05 08:00 | disposition home or self-care (01) ==
PROVIDERS: Emergency Provider Family Medicine; PCP Family Medicine
DX: J45.901 Unspecified asthma with (acute) exacerbation (principal)
CPT/HCPCS: 71046; 87502; 87634; 87635; 94640; 99283; 99284; J7512

== ENCOUNTER 2023-01-19 12:47 | Outpatient (CLI) | payer BC, SELFPAY | END 2023-01-19 12:48 | disposition home or self-care (01) | LOC: AMB 01-23 18:37 | PROVIDERS: PCP Family Medicine; Visit Provider Family Medicine | DX: R42 Dizziness and giddiness (principal) | CPT/HCPCS: A0998 ==

== ENCOUNTER 2023-11-02 23:39 | Outpatient (CLI) | payer BC, SELFPAY ==
--- OUTSIDE RECORDS SUMMARY | 2023-11-06 19:48 | XMS_ITS | Clinical Summary ---
Author Organization [employer] [facility] Address [place], [place] [address] Care Team Providers Care Real Estate Representative Name Role Phone Pcp, No Primary Care Provider Unavailabl e Allergies No known active allergies Medications Medication Sig Dispensed Refills Start Date End Date Status loratadine (CLARITIN) 10 mg tablet Take 1 Tablet (10 mg) by mouth once daily. 0 08/04/2021 Active budesonide-formoteroL (Symbicort) 80-4.5 mcg/actuation (80-4.5 mcg each actuation) inhalerIndications:Mo derate persistent asthma with acute exacerbation Inhale 2 Puffs by mouth two times daily. 10.2 g 11 06/15/2022 Active NebulizerIndications: Moderate persistent asthma with acute exacerbation Nebulizer, disposable neb kit x 4, reuseable neb kit x 1, mask x 1, filters x 1. Frequency of use: daily; Medication: albuterol 0.083% neb solution Length of need: 99 months 1 Each 06/15/2022 Active albuterol (PROVENTIL) 0.083 % neb solutionIndications:M oderate persistent asthma with acute exacerbation Inhale 3 mL (2.5 mg) via a nebulizer every 4 hours if needed for Shortness Of Breath. One ampule in nebulizer as needed 75 mL 1 07/06/2022 Active albuterol HFA (PRO-AIR; VENTOLIN; PROVENTIL) 90 mcg/actuation inhalerIndications:Mo derate persistent asthma with acute exacerbation Inhale 2 Puffs by mouth every 4 hours if needed for Wheezing. 1 Each 1 09/01/2022 Active albuterol HFA (PRO-AIR; VENTOLIN; PROVENTIL) 90 mcg/actuation inhalerIndications:Mi ld persistent intrinsic asthma without status asthmaticus without complication Inhale 2 Puffs by mouth every 4 hours if needed for Shortness Of Breath. 17 g 2 04/05/2023 Active budesonide-formoteroL (Symbicort) 80-4.5 mcg/actuation (80-4.5 mcg each actuation) inhalerIndications:Mi ld persistent intrinsic asthma without status asthmaticus without complication Inhale 2 Puffs by mouth two times daily. 10.2 g 04/05/2023 Active azelastine 137 mcg/actuation (ASTELIN) nasal sprayIndications:Mild persistent intrinsic asthma without status asthmaticus without complication Inhale 1 [place] into affected nostril(s) two times daily. 30 mL 5 04/05/2023 Active sertraline (ZOLOFT CONCENTRATE) 20 mg/mL concentrated solutionIndications:D epression, unspecified depression type Take 1 mL (20 mg) by mouth once daily. 30 mL 04/29/2023 Active Active Problems Problem Noted Date Diagnosed Date Depression 04/08/2023 Vitamin D deficiency 09/18/2017 Teeth-grinding 10/15/2009 Resolved Problems Problem Noted Date Diagnosed Date Resolved Date Severe episode of recurrent major depressive disorder, without psychotic features 10/13/201709/2020 Encounters Date Type Department Care Team Description 10/14/2023 Patient Outreach [address] [address] Kenisha Jeronimo Care Coordination (FREIGHT SORTER DISCHARGE) 09/14/2023 Patient Outreach [address] [address] Kenisha Jeronimo Care Coordination (UPDATE PER FREIGHT SORTER/) from Last 3 Months Immunizations Name Administration Dates Next Due COVID-19 vaccine (Moderna 100mcg/0.5mL) PF, MDV 08/18/2020,07/21/2020 DTaP 09/10/2005, 2,04/04/2001,01/07,2000 HIB-HepB (Comvax) 11/03/2001,01/07/2001,10/28/19 01 HPV 9 (Gardasil 9) 12/22/2017,10/18/2017, 016 Hepatitis A (Peds) 12/22/2017,09/12/2010, 010 Hepatitis B (Peds) 11/03/2001,01/07/2001, 001 Hib Conjugate, Unspecified 11/03/2001,01/07/2001 ,2000 Human Papilloma Virus Vaccine 11/21/2014 Human Papilloma Virus Vaccin e, Unspecified 01/12/2013 Inactivated Polio Vaccine 09/10/2005,09/2000,01/07/2001,10/27 Influenza A (H1N1), Inactivated 05/17/2009,04/19 Influenza A (H1N1), Inactiva rory (Age >=3 Years) 05/17/2009,04/19/2009 Influenza, IIV4 02/28/2020,04/17/2019,04/01/2016 MMR 09/10/2005,09/02/2001 Meningococcal Vaccine (Menactra) 01/22/2012 Pneumococcal Poly,23-Valent (Pneumovax) 01/07/2001 Pneumococcal conj 7-Valent (Prevnar 7) 0 02/10/2002,04/04/2001,01/07/2001,10/27 Tdap 10/18/2017,01/22/2012 Varicella Vaccine 10/15/2009,09/02/2001 Family History Medical History Relation Name Comments Diabetes Father No Known Problems Mother Diabetes Paternal Grandfather Diabetes Paternal Grandmother Relation Name Status Comments Father Mother Paternal Grandfather Paternal Grandmother Social History Tobacco Use Types Packs/Day Years Used Date Smoking Tobacco: Never Passive Smoke Exposure: Current Smokeless Tobacco: Never Tobacco Cessation:Counseling Given: Not Answered Passive Exposure Comments:socially, friends smoke (twice weekly) Alcohol Use Standard Drinks/Week Comments Yes 9 (1 standard drink = 0.6 oz pur e alcohol) on weekends, not every weekend PHQ-2 Answer Date Recorded PHQ-2 TOTAL SCORE 4 05/04/2023 Social Connections Answer Date Recorded Frequency of Communication with Friends and Fami ly Not on file 05/31/2021 Financial Resource Strain Answer Date R ecorded Difficulty of Paying Living Expenses Not on file 05/31/2021 Difficulty of Paying Living Expenses Not on file 05/31/2021 Sex and Gender Information Value Date Recorded Sex Assigned at Not on file Gender Identity Not on file Sexual Orientation Not on file Obstetrics History Last Filed Vital Signs Vital Sign Reading Time Taken Comments Blood Pressure 133/74 04/08/2023 9:54 AM 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 WORKER Pulse 74 04/08/2023 9:54 AM LUNCHROOM WORKER Temperature 36.9 ??C (98.4 ??F) 04/08/2023 9:54 AM CS T Respiratory Rate 18 04/08/2023 9:54 AM LUNCHROOM WORKER Oxygen Saturation 96% 04/08/2023 9:54 AM LUNCHROOM WORKER Inhaled Oxygen Concentration - - Weight 63 kg (139 lb) 04/08/2023 9:54 AM LUNCHROOM WORKER Height 144.8 cm (4' 9) 04/08/2023 9:54 AM LUNCHROOM WORKER Body Mass Index 30.08 04/08/2023 9:54 AM LUNCHROOM WORKER Plan of Treatment Upcoming Encounters Date Type Department Care Team (Late st Contact Info) Description 11/08/2023 12:55 PM CDT Office Visit [facility] [address] [place] [address] Rowan Hicks, DO [address] [place] [address] Health Maintenance Due Date Last Done Comments Hepatitis C screening for age 18-79 2018 Pap test for age 21-65 2021 COVID-19 vaccine series ( season) 2023 05/20/2021, 08/18/2020, 07/21/2020 BMI (ht and wt on same day) for age 18+ 06/15/2023 06/15/2022, 09/15/2021, 08/04/2021, Additional history exists Influenza for age 9-49 01/30/2024 , 04/17/2019, 04/01/2016, Additional history exists Depression screening for age 12+ 05/04/2024 05/04/2023, 04/30/2023, 04/29/2023, Additional history exists Tetanus booster 10/19/2027 10/18/2017, 01/22/2012 Pneumococcal series for age 6-64 Aged Out 02/10/2002, 04/04/2001, 01/07/2001, Additional history exists No longer eligible based on patient's age to complete this topic Tdap Completed 10/18/2017, 01/22/2012 HPV series for age 9-26 Completed 12/23/19 18, 12/22/2017, 10/18/2017, Additional history exists HIV for age 15-65 Completed 12/02/2020 Procedures Procedure Name Priority Date/Time Associated Diagnosis Comments ANTI HIV 1/2 Routine 12/02/2020 10:14 AM CDT Screening for HIV (human immunodeficiency virus) from Last 3 Months or Most Recently Relevant to Health Maintenance Results * ANTI HIV 1/2 [90589.0] (12/02/2020 10:14 AM CDT) HIV-1/HIV-2 ANTIBODY Non-Reacti ve Non-Reacti ve 12/02/2020 5:23 PM CDT [facility] Comment:HIV-1 p24 and HIV-1/ HIV-2 Ab not detected. Blood BLOOD SPECIMEN / Unknown Venipuncture / Unknown 12/02/2020 10:14 AM CDT 12/02/2020 10:17 AM CDT Rowan Hicks DO SEND OUTS [facility] [address] [place] [address], from Last 3 Months or Most Recently Relevant to Health Maintenance Care Teams Real Estate Representative Relationship Specialty Start Date End Date Pcp, No . PCP - General 04/04/22
== END 2023-11-02 23:40 | disposition home or self-care (01) ==
LOC: AMB 11-06 19:46
PROVIDERS: PCP Family Medicine; Visit Provider Emergency Medicine
DX: R10.9 Unspecified abdominal pain (principal); R25.2 Cramp and spasm
CPT/HCPCS: A0998

== ENCOUNTER 2024-12-07 21:42 | Emergency (ER) | payer OTHER, SELFPAY ==
--- OUTSIDE RECORDS SUMMARY | 2024-12-07 21:43 | XMS_ITS | Clinical Summary ---
Author Organization [facility] [facility] Address [address] [place] [address] Care Team Providers Care Mind Reader Name Role Phone Rowan Hicks Sonja CARUSO Primary Care Provider [phone] Allergies No known active allergies Medications NebulizerIndicati ons:Moderate persistent asthma with acute exacerbation (HC) Nebulizer, disposable neb kit x 4, reuseable neb kit x 1, mask x 1, filters x 1. Frequency of use: daily; Medication: albuterol 0.083% neb solution Length of need: 99 months 1 Each 3 Active albuterol (PROVENTIL) 0.083 % neb solutionIndicatio ns:Moderate persistent asthma with acute exacerbation (HC) Inhale 3 mL (2.5 mg) via a nebulizer every 4 hours if needed for Shortness Of Breath. One ampule in nebulizer as needed 75 mL 1 3 Active azelastine 137 mcg/actuation (ASTELIN) nasal sprayIndications: Mild persistent intrinsic asthma without status asthmaticus without complication (HC) Inhale 1 [place] into affected nostril(s) two times daily. 30 mL 5 3 Active budesonide-formot Ángel (Symbicort) 80-4.5 mcg/actuation (80-4.5 mcg each actuation) inhalerIndication s:Mild persistent intrinsic asthma without status asthmaticus without complication (HC) Inhale 2 Puffs by mouth two times daily. 10.2 g 11 4 Active albuterol HFA (PRO-AIR; VENTOLIN; PROVENTIL) 90 mcg/actuation inhalerIndication s:Mild persistent intrinsic asthma without status asthmaticus without complication (HC) Inhale 2 Puffs by mouth every 4 hours if needed for Shortness Of Breath. 17 g 2 4 Active Active Problems Problem Noted Date Diagnosed Date Depression 04/08/2023 Vitamin D deficiency 09/18/2017 Teeth-grinding 10/15/2009 Resolved Problems Problem Noted Date Diagnosed Date Resolved Date Severe episode of recurrent major depressive disorder, without psychotic features 10/13/201709/2020 Immunizations Immunization Administration Dates Next Due COVID-19 vaccine (Moderna [...] Answer Date Recorded PHQ-2 TOTAL SCORE 4 05/04/2024 Social Connections Answer Date Recorded Do you often feel lonely or isolated from those around you? 0 11/08/2023 Financial Resource Strain Answer Date R ecorded Difficulty of Paying Living Expenses 3 11/08/2023 Difficulty of Paying Living Expenses Not on file 11/08/2023 Food Insecurity Answer Date Recorded Do you worry your food will run out before you are able to buy more? 1 11/08/2023 Transportation Needs Answer Date Record ed Does lack of transportation keep you from medica l appointments? 1 11/08/2023 Does lack of transportation keep you from work, meetings or getting things that you need? 1 11/08/2023 Housing Stability Answer Date Recorded What is your housing situation today? 1 11/08/2023 Utilities Answer Date Recorded Do you have trouble paying f or utilities (for example, heat, electricity, water, phone)? 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 Gender Identity Not on file Sexual Orientation Not on file Obstetrics History Last Filed Vital Signs Vital Sign Reading Time Taken Comments Blood Pressure 121/71 04/02/2024 3:52 PM CONDOMINIUM PROPERTY MANAGER Pulse 86 04/02/2024 3:52 PM CONDOMINIUM PROPERTY MANAGER Temperature 37.5 C (99.5 F) 04/02/2024 3:52 PM CONDOMINIUM PROPERTY MANAGER Respiratory Rate 18 04/02/2024 3:52 PM CONDOMINIUM PROPERTY MANAGER Oxygen Saturation 98% 04/02/2024 3:52 PM CONDOMINIUM PROPERTY MANAGER Inhaled Oxygen Concentration - - Weight 62.1 kg (137 lb) 04/02/2024 3:52 PM CONDOMINIUM PROPERTY MANAGER Height 143.5 cm (4' 8.5) 11/08/2023 12:59 PM CD T Body Mass Index 30.18 11/08/2023 12:59 PM CDT Plan of Treatment Health Maintenance Due Date Last Done Comments Chlamydia for age 16-24 2016 Hepatitis C screening for age 18-79 2018 Pap test for age 21-65 2021 COVID-19 vaccine series ( season) 2024 05/20/2021, 08/18/2020, 07/21/2020 BMI (ht and wt on same day) for age 18+ 11/07/2024 11/08/2023, 06/15/2022, 09/15/2021, Additional history exists Influenza Vaccine (#1) 2025 , 04/17/2019, 04/01/2016 Depression screening for age 12+ 05/05/2025 05/05/2024, 05/04/2024, 11/08/2023, Additional history exists Tetanus booster 10/19/2027 10/18/2017, 01/22/2012 Hepatitis B series for 19+ Completed 11/03, 11/03/2001, 01/07/2001, Additional history exists Pneumococcal series for age 6-49 Aged Out 02/10/2002, 04/04/2001, 01/07/2001, Additional history exists No longer eligible based on patient's age to complete this topic HPV series for age 9-26 Completed 12/23/19 18, 12/22/2017, 10/18/2017, Additional history exists HIV for age 15-65 Completed 12/02/2020 Procedures Procedure Name Priority Date/Time Associated Diagnosis Comments ANTI HIV 1/2 Routine 12/02/2020 10:14 AM CDT Screening for HIV (human immunodeficiency virus) from Last 3 Months or Most Recently Relevant to Health Maintenance Results * ANTI HIV 1/2 [30601.0] (12/02/2020 10:14 AM CDT) HIV-1/HIV-2 ANTIBODY Non-Reacti ve Non-Reacti ve 12/02/2020 5:23 PM CDT [facility] Comment:HIV-1 p24 and HIV-1/ HIV-2 Ab not detected. Blood BLOOD SPECIMEN / Unknown Venipuncture / Unknown 12/02/2020 10:14 AM CDT 12/02/2020 10:17 AM CDT us Rowan Hicks DO SEND OUTS Final Result [facility] [address] [place] [address], [place] from Last 3 Months or Most Recently Relevant to Health Maintenance Care Teams Mind Reader Relationship Specialty Start Date End Date Rowan Hicks [place] [address] PCP - General Family Practice 11/08/23
[2024-12-07 21:51] VITALS: BP 162/92; PULSE 95; RESP 18; TEMP 36.4; O2SAT 95; BMI 30.3
--- NOTE | 2024-12-07 22:20 | ED_ITS ---
HPI - General Adult General Chief complaint: Psychiatric Problem/Disorder Stated complaint: mental health Time Seen by Provider: 12/07/24 21:47 Source: patient Mode of arrival: ambulatory Limitations: no limitations History of Present Illness HPI narrative: Yany is a 24 year old female presenting today after suicidal attempt. She states that she took 5 tablets of Claritin at home. After arrival in the ED she states that she took 2 more tablets that she found in her pocket. Patient states that she no longer wants to live. She states that she feels completely overwhelmed with life. Her mother is no longer able to work at this time so she is pain all the bills for her family. She feels hopeless. States that she has had a suicidal attempt approximately 5 years ago has required hospitalization in the past. States that she takes an inhaler for asthma, denies any other medications. Was on Lexapro in the past and stopped taking it sometime ago because she was feeling better. Related Data Home Medications ?Medication ?Instructions ?Recorded ?Confirmed budesonide-formoterol HFA 80 inhalation 04/29/2211/15 mcg-4.5 mcg/actuation aerosol inhaler (Symbicort) Previous Rx's ?Medication ?Instructions ?Recorded albuterol sulfate 90 mcg/actuation 2 puff inhalation Q 4-6H PRN 04/30/22 aerosol inhaler shortness of breath or wheez ing #8.5 grams inhalational spacing device #1 ea 04/30/22 (Aerochamber Plus Flow-Vu) ipratropium 0.5 mg-albuterol 3 mg 3 ml inhalation Q6-8 H PRN 08/05/22 (2.5 mg base)/3 mL nebulization shortness of breath or wheezing soln #180 mL Allergies Allergy/AdvReac Type Severity Reaction Status Date / Time No Known Drug Allergies Allergy Verified 11/16/23 10:44 Review of Systems Status of ROS: Reports: 10 or more systems reviewed and unremarkable except as noted in History and below [facility] Medical History Asthma ?J45.909 - Unspecified asthma, uncomplicated (ICD-10) Social History Smoking Status: Never smoker Do you use any of these nicotine containing products: None Second hand tobacco smoke exposure: No How often do you have a drink containing alcohol: monthly or less How often do you have six or more drinks on one occasion: Never AUDIT-C Alcohol total score: 1 Non-prescribed substance use: denies use service: No Exam Narrative: Exam Narrative: Overweight, well-developed patient, tearful. Alert and oriented x3. Answers questions appropriately. Patient is very sad and tearful. Thoughts are goal oriented. No tangential or magical thinking noted. HEENT: Normocephalic atraumatic. Pupils are equally round reactive to light. Extraocular muscles are intact. Conjunctivae are moist without any icterus noted. Moist mucous membranes. Cardiovascular: Heart is regular rate and rhythm S1 and S2 are present without any murmurs. Lungs: Clear to auscultation bilaterally no wheezes rhonchi or rales are appreciated. Patient takes deep breaths without any discomfort. Abdomen: Soft and nontender nondistended with normal bowel sounds. Skin: Exposed skin is well perfused without any obvious rashes. Const: Vital Signs, click to edit/add: Vital Signs - 24 hr 12/07/24 21:51 Temperature 97.5 F L Pulse Rate [Pulse Oximeter] 95 Respiratory Rate 18 Blood Pressure [Ri t Upper Arm] 162/92 H Pulse Oximetry 95 Oxygen Delivery Me thod Room Air Course Course ED Course: Blood work is unremarkable. EKG, read by me, shows normal sinus rhythm with a pulse of 74. Normal QRS, QTC and OK intervals. UA shows rbc's-according to the patient, patient is menstruating. Patient had a mental health assessment who is in agreement that patient requires inpatient psychiatric assessment and stabilization. We will wait for placement at this time. Patient is currently voluntary. Vital Signs Vital signs: Initial Vital Signs Temperature 97.5 F L 12/07/24 21:51 Temperature Source Temporal Artery Scan 12/07/24 21:51 Pulse Rate 95 12/07/24 21:51 Pulse Rhythm Regular 12/07/24 21:51 Respiratory Rate 18 12/07/24 21:51 Blood Pressure 162/92 H 12/07/24 21:51 Blood Pressure Mean 115 H 12/07/24 21:51 Blood Pressure Position Sitting 12/07/24 21:51 Pulse Oximetry 95 12/07/24 21:51 Oxygen Delivery Method Room Air 12/07/24 21:51 Vital Signs Temperature 97.5 F L 12/07/24 21:51 Pulse Rate 95 12/07/24 21:51 Respiratory Rate 18 12/07/24 21:51 Blood Pressure 162/92 H 12/07/24 21:51 Pulse Oximetry 95 12/07/24 21:51 Oxygen Delivery Method Room Air 12/07/24 21:51 Temperature 97.5 F L 12/07/24 21:51 Pulse Rate 95 12/07/24 21:51 Respiratory Rate 18 12/07/24 21:51 Blood Pressure 162/92 H 12/07/24 21:51 Pulse Oximetry 95 12/07/24 21:51 Oxygen Delivery Method Room Air 12/07/24 21:51 Medical Decision Making MDM Narrative Medical decision making narrative: 24-year-old female, suicidal ideation and suicide attempt. Patient will await for psychiatric placement. Lab Data Lab results reviewed: Yes I reviewed the patient's lab results Labs: Lab Results 12/07/24 12/07/24 12/07/24 Range/Units 22:15 22:17 23:20 WBC 9.57 (4.50-11.00) K/uL RBC 4.65 (4.00-5.20) m/uL Hgb 14.1 (12.0-16.0) gm/dL Hct 41.9 (33.0-51.0) % MCV 90 (80-100) fL MCH 30 (26-34) pg MCHC 34 (32-36) gm/dL RDW Coeff of Griselda 12.0 (11.5-15.5) % Plt Count 400 (140-440) K/uL Neut % (Auto) 49.8 (42.0-72.0) % Lymph % (Auto) 38.9 (20-44) % [place] % (Auto) 7.5 (0.0-11.0) % Eos % (Auto) 2.5 (0.0-7.0) % Baso % (Auto) 0.6 (0.0-3.0) % Neut # (Auto) 4.76 (1.7-7.0) K/uL Lymph # (Auto) 3.72 H (0.90-2.90) K/uL [place] # (Auto) 0.70 (0.00-0.90) K/UL Eos # (Auto) 0.24 (0.00-0.50) K/uL Baso # (Auto) 0.06 (0.00-0.30) K/uL Abs Immat Gran (auto) 0.07 (0.00-0.30) K/uL Imm/Tot Granulo (auto) 0.7 % Sodium 141 (135-149) mmol/L Potassium 3.9 (3.6-5.1) mmol/L Chloride 106 (96-114) mmol/L Carbon Dioxide 25 (20-32) mmol/L Anion Gap 10 (7-15) mEq/L BUN 10 (5-24) mg/dL Creatinine 0.6 (0.5-1.5) mg/dL Estimated Creat Clear 144.94 Estimated GFR 128 ml/min Glucose 96 (60-115) mg/dL Lactate 1.6 (0.5-1.9) mmol/L Calcium 9.7 (8.4-10.6) mg/dL Total Bilirubin 0.5 (0.1-1.5) mg/dL Direct Bilirubin 0.0 (0.0-0.5) mg/dL AST 37 H (12-35) U/L ALT 60 H (4-35) U/L Alkaline Phosphatase 79 (40-150) U/L Total Protein 8.2 (6.0-8.3) g/dL Albumin 4.9 (3.3-5.0) g/dL Urine Color Yellow (Yellow) Urine Appearance Clear (Clear) Urine pH 5.5 (5.0-8.5) Ur Specific [place] 1.025 (1.000-1.030) Urine Protein Negative (Negative) Urine Glucose (UA) Negative (Negative) Urine Ketones Negative (Negative) Urine Blood 1+ A (Negative) Urine Nitrite Negative (Negative) Urine Bilirubin Negative (Negative) Urine Urobilinogen 0.2 (0.2-1.0) Ur Leukocyte Esterase Trace A (Negative) Urine RBC 10-25 A (0-2) Urine WBC 0-2 (0-5) Ur Squamous Epith Cells Few (None-Few) Amorphous Sediment Few A (None) Urine Bacteria Moderate A (None) Urine HCG, Qual Negative (Negative) Salicylates < 1.0 L < 1.0 L (1.0-10) mg/dL Urine Opiates Screen Negative (Negative) Ur Oxycodone Screen Negative (Negative) Urine Methadone Screen Negative (Negative) Acetaminophen < 10.0 < 10.0 (10.0-30.0) ug/mL Ur Barbiturates Screen Negative (Negative) U Tricyclic Antidepress Negative (Negative) Ur Phencyclidine Scrn Negative (Negative) Ur Amphetamines Screen Negative (Negative) U Methamphetamines Scrn Negative (Negative) U Benzodiazepines Scrn Negative (Negative) Urine Cocaine Screen Negative (Negative) U Marijuana (THC) Screen Negative (Negative) Ur Drug Screen Comment See Note Ethyl Alcohol < 0.01 (0.01-0.03) % ECG Data Attestation: I personally reviewed and interpreted this ECG as follows: Discharge Plan Discharge Clinical Impression: Suicidal ideation, Suicide attempt Patient Disposition: Xfer Psychiatric Hosp Condition: Stable Prescriptions: No Action budesonide-formoterol [Symbicort] 80-4.5 mcg/actuation HFA aerosol inhaler INHALATION Patient Comments: INHALE 2 PUFFS BY MOUTH TWICE DAILY albuterol sulfate 90 mcg/actuation HFA aerosol inhaler 2 puff inhalation Q4-6H PRN (Reason: shortness of breath or wheezing) Qty: 8.5 2RF (DME) Aerochamber Plus Flow-Vu Spacer See Rx Instructions .Route Qty: 1 0RF Rx Instructions: As directed ipratropium-albuterol 0.5 mg-3 mg(2.5 mg base)/3 mL solution for nebulization 3 ml inhalation Q6-8H PRN (Reason: shortness of breath or wheezing) Qty: 180 1RF Stand Alone Forms: [facility] Instructions
[2024-12-07 22:24] LABS: Lactate* 1.6 mmol/L (0.5-1.9)
[2024-12-07 22:28] LABS: Hematocrit 41.9 % (33.0-51.0); Hemoglobin* 14.1 gm/dL (12.0-16.0); Immature Granulocytes Abs Auto 0.07 K/uL (0.00-0.30); Immature Granulocytes Pct Auto 0.7 %; Lymphocytes Absolute Auto 3.72 K/uL (0.90-2.90); Mean Corpuscular HGB Conc 34 gm/dL (32-36); Mean Corpuscular Hemoglobin 30 pg (26-34); Mean Corpuscular Volume 90 fL (80-100); RDW Coefficient of Variation % 12.0 % (11.5-15.5); Red Blood Count 4.65 m/uL (4.00-5.20); Slide Review Reflex No; White Blood Count* 9.57 K/uL (4.50-11.00)
[2024-12-07 22:36] LABS: Cannabinoid Screen Urine Negative (Negative); Methamphetamines Screen Urine Negative (Negative); Tricyclic Antidepressant Urine Negative (Negative)
[2024-12-07 22:39] LABS: Appearance Urine Clear (Clear)
[2024-12-07 22:43] LABS: Albumin* 4.9 g/dL (3.3-5.0); Chloride* 106 mmol/L (96-114); Potassium* 3.9 mmol/L (3.6-5.1); Sodium* 141 mmol/L (135-149)
[2024-12-07 22:45] LABS: Blood Urea Nitrogen* 10 mg/dL (5-24); Creatinine* 0.6 mg/dL (0.5-1.5); Est. Creatinine Clearance* 144.94; Estimated Glomerular Filt Rate 128 ml/min
[2024-12-07 22:46] LABS: Alanine Aminotransferase* 60 U/L (4-35); Alkaline Phosphatase* 79 U/L (40-150); Anion Gap 10 mEq/L (7-15); Aspartate Amino Transferase* 37 U/L (12-35); Bilirubin Direct* 0.0 mg/dL (0.0-0.5); Bilirubin Total* 0.5 mg/dL (0.1-1.5); Calcium* 9.7 mg/dL (8.4-10.6); Carbon Dioxide* 25 mmol/L (20-32); Glucose* 96 mg/dL (60-115); Total Protein* 8.2 g/dL (6.0-8.3)
[2024-12-07 22:52] LABS: Acetaminophen* < 10.0 ug/mL (10.0-30.0); Ethanol* < 0.01 % (0.01-0.03); Salicylate* < 1.0 mg/dL (1.0-10)
[2024-12-07 22:53] LABS: Ur HCG Qualitative* Negative (Negative)
[2024-12-07 23:43] LABS: Acetaminophen* < 10.0 ug/mL (10.0-30.0); Salicylate* < 1.0 mg/dL (1.0-10)
[2024-12-08 01:45] VITALS: BP 128/85; PULSE 70; RESP 16; O2SAT 98
== END 2024-12-08 02:25 ==
PROVIDERS: Emergency Provider Family Medicine; PCP Family Medicine
DX: R45.851 Suicidal ideations (principal)
CPT/HCPCS: 36415; 80048; 80076; 80143; 80179; 80306; 81001; 81025; 82077; 83605; 85025; 87086; 93005; 99285; Q3014

== ENCOUNTER 2024-12-08 02:21 | Outpatient (CLI) | payer OTHER, SELFPAY | END 2024-12-08 02:22 | disposition home or self-care (01) | LOC: AMB 12-11 09:12 | PROVIDERS: PCP Family Medicine; Visit Provider Internal Medicine | DX: R45.851 Suicidal ideations (principal) | CPT/HCPCS: A0425; A0428 ==

== ENCOUNTER 2025-04-17 11:15 | Outpatient (CLI) | payer OTHER, SELFPAY ==
[2025-04-17 14:09] LABS: Chlamydia DNA Amplified* NOT DETECTED (No Detected); GC DNA Amplified* NOT DETECTED (No Detected)
== END 2025-04-17 11:16 | disposition home or self-care (01) ==
PROVIDERS: PCP Family Medicine; Visit Provider Physician Assistant
DX: Z11.3 Encounter for screening for infections with a predominantly sexual mode of transmission (principal)
CPT/HCPCS: 86592; 86703; 87491; 87529; 87591